=== PATIENT | female | born 1960 | race Caucasian/White ===

== ENCOUNTER 2025-06-24 04:02 | Outpatient (CLI) | payer MEDICARE, BC, SELFPAY ==
--- NOTE | 2025-06-24 11:30 | DI.DEXA_ITS ---
Exam(s) XR DEXA BONE DENSITY W/WO JAKOB EXAM: XR DEXA BONE DENSITY W/WO JAKOB CLINICAL HISTORY: SCREENING FOR OSTEOPOROSIS,ASYMPTOMATIC POSTMENOPAUSAL STATUS,Z78.0 TECHNIQUE: COMPARISON: No exams were available for comparison FINDINGS: Lateral Spine Image: Unremarkable. No compression deformities identified. Left hip: Total T-Score: -1.7 Total Z-Score: -0.4 T- and Z-scores: Findings are consistent with osteopenia. Lumbar Spine: Total T-Score: -1.0 Total Z-Score: 0.8 T- and Z-scores: Within normal limits. IMPRESSION: No evidence of osteoporosis.
== END 2025-06-24 04:22 ==
PROVIDERS: PCP Family Medicine; Visit Provider Family Medicine
DX: Z13.820 Encounter for screening for osteoporosis (principal); Z78.0 Asymptomatic menopausal state
CPT/HCPCS: 77080